=== PATIENT | female | born 2000 | race African-American/Black ===

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

== ENCOUNTER 2022-04-29 20:38 | Emergency (ER) | payer OTHER | END 2022-04-29 23:52 | disposition home or self-care (01) | LOC: CSHERS 20:38 | DX: J03.90 Acute tonsillitis, unspecified (principal) | CPT/HCPCS: 87081; 87430; 99283 ==